=== PATIENT | male | born 1980 | race Caucasian/White ===

== ENCOUNTER 2019-03-15 13:27 | Emergency (ER) | payer OTHER ==
[2019-03-15 14:20] LABS: PLATELET COUNT 190 10^3/uL (150-400)
--- NOTE | 2019-03-15 14:47 | EDPHY ---
H & P Stated Complaint: Lt foot swelling Time Seen by Provider: 03/15/19 13:38 HPI/ROS: CHIEF COMPLAINT: Atraumatic left ankle pain unable to bear weight HISTORY OF PRESENT ILLNESS: 38-year-old immunocompetent male with out-of-date tetanus complaining of 1 day of atraumatic left ankle pain with inability to bear weight, erythema to the lateral aspect of the ankle. No fever no chills. No nausea no vomiting. No lymphangitic streaking. No acute trauma. No fall. PRIMARY CARE PROVIDER: No primary care REVIEW OF SYSTEMS: 10 systems reviewed and negative with the exception of the elements mentioned in the history of present illness PAST MEDICAL & SURGICAL HISTORY: No pertinent medical or surgical history SOCIAL HISTORY: Nonsmoker PHYSICAL EXAM (Prior to examination, patient consented to physical exam, hands were washed and my usual and customary physical exam procedures followed) 1) GENERAL: Well-developed, well-nourished, alert and oriented. Appears to be in no acute distress. 2) HEAD: Normocephalic, atraumatic 3) HEENT: Pupils equal, round, reactive to light bilaterally. Sclera anicteric. 4) NECK: Full range of motion, no meningeal signs. 5) LUNGS: Clear auscultation bilaterally, no wheezes, no rhonchi, no retractions. 6) HEART: Regular rate and rhythm, no murmur, no heave, no gallop. 7) ABDOMEN: No guarding, no rebound, no focal tenderness, negative McBurney's, negative Kc's, negative Rovsing's, negative peritoneal sign, 8) MUSCULOSKELETAL: Left lower extremity: Erythema to the lateral aspect of the ankle with associated tenderness. There is no erythema extending to the medial or anterior posterior aspect. Pain with axial loading of the joint and with range of motion of the ankle joint. No lymphangitic streaking.. 9) BACK: No step-off, no obvious trauma, no visual or palpable abnormality. 10) SKIN: No rash, no petechiae. 11) Psychiatric: Patient is oriented X 3, there is no agitation. DIFFERENTIAL DIAGNOSIS: In no particular order including but not limited to septic arthritis, cellulitis, gouty arthritis - Personal History Current Tetanus/Diphtheria Vaccine: Unsure Current Tetanus Diphtheria and Acellular Pertussis (TDAP): Unsure - Medical/Surgical History Hx Asthma: No Hx Chronic Respiratory Disease: No Hx Diabetes: No Hx Cardiac Disease: No Hx Renal Disease: No Hx Cirrhosis: No Hx Alcoholism: No Hx HIV/AIDS: No Hx Splenectomy or Spleen Trauma: No Other PMH: L ANKLE SPRAIN - Social History Smoking Status: Never smoked Constitutional: Initial Vital Signs Temperature (C) 36.8 C 03/15/19 13:27 Heart Rate 92 03/15/19 13:27 Respiratory Rate 16 03/15/19 13:27 Blood Pressure 144/85 H 03/15/19 13:27 O2 Sat (%) 96 03/15/19 13:27 O2 Delivery Mode Room Air Allergies/Adverse Reactions: No Known Allergies Allergy (Verified 06/20/16 10:16) Home Medications: Medication Instructions Recorded oxyCODONE/APAP 5/325 [Percocet] 1 - 2 tab PO Q4-6PRN PRN #11 tab 10/16/16 Colchicine 0.6 mg PO ONCE #1 capsule 03/15/19 Indomethacin [Indocin 25 mg (*)] 50 mg PO TID #18 cap 03/15/19 Medical Decision Making ED Course/Re-evaluation: Re-evaluation. Patient's synovial arthrocentesis shows 24,000 white blood cells , positive for gout crystals. Consultation with Dr. Marco Coughlin at 4:15 p.m. Who recommends treatment for gout and close follow-up next week (today is Monday ) I think that septic arthritis is less than likely in this patient. The patient I discussed more than likely acute gouty arthritis. At this time I think the patient can be discharged home with indomethacin, colchicine, elevation, immobilization, close follow-up (today is Monday). Patient feels comfortable with this plan. My usual customary precautions instructions provided. Care of patient under supervision of secondary supervising physician Dr Stevens . - Data Points Laboratory Results: Laboratory Results 03/15/19 14:05 03/15/19 14:05 Microbiology Results: MICROBIOLOGY 03/15/19 14:35 Ankle - Aspirate Gram Stain - Final 03/15/19 14:35 Ankle - Aspirate Anaerobic Culture - Preliminary Medications Given: Discontinued Medications Colchicine (Colchicine) 1.2 mg PO EDNOW ONE Stop: 03/15/19 16:12 Last Admin: 03/15/19 16:30 Dose: 1.2 mg Diphtheria/Tetanus/Acell Pertussis (Boostrix) 0.5 ml IM .ONCE ONE Stop: 03/15/19 16:22 Last Admin: 03/15/19 16:26 Dose: 0.5 ml Indomethacin (Indocin) 50 mg PO EDNOW ONE Stop: 03/15/19 16:12 Last Admin: 03/15/19 16:40 Dose: 50 mg Departure - Departure Disposition: Home, Routine, Self-Care Clinical Impression: Gout Condition: Good Instructions: Low Purine Diet (ED), Gout (ED) Additional Instructions: Return to the ER if you develop redness, swelling, discharge, warmth to the wound, red streaks going up your leg, or any other symptoms that concern you. Referrals: [facility],. [Clinic] - 03/18/19 Prescriptions: Colchicine 0.6 mg PO ONCE #1 capsule Indomethacin [Indocin 25 mg (*)] 50 mg PO TID #18 cap
[2019-03-15] MEDS ORDERED: INDOMETHACIN 25 MG CAP PO ONE (16:11)
[2019-03-15] MEDS ORDERED: COLCHICINE 0.6 MG CAP/TAB PO ONE (16:11)
[2019-03-15] MEDS ORDERED: TDAP ADULT 0.5 ML INJ (BOOSTRIX) IM ONE (16:21)
[2019-03-15 16:43] VITALS: BP 138/75
== END 2019-03-15 16:42 | disposition home or self-care (01) ==
DX: M10.9 Gout, unspecified (principal)